=== PATIENT | female | born 1960 | race African-American/Black ===

== ENCOUNTER 2018-03-23 10:01 | Emergency (ER) | payer OTHER ==
[2018-03-23 10:14] VITALS: TEMP 97.4; BMI 34.7
[2018-03-23 10:42] LABS: URINE APPEARANCE CLEAR; URINE BILIRUBIN NEGATIVE (<2.0 mg/dL); URINE COLOR LTYELLOW; URINE GLUCOSE (UA) NEGATIVE (NEGATIVE); URINE KETONE NEGATIVE (NEGATIVE); URINE LEUK ESTERASE NEGATIVE (NEGATIVE); URINE NITRITE NEGATIVE (NEGATIVE); URINE PROTEIN NEGATIVE (NEGATIVE); URINE UROBILINOGEN NEGATIVE mg/dL (0.2-1.0)
--- NOTE | 2018-03-23 11:00 | PDOC ---
History of Present Illness - General Chief Complaint: Pain, Acute Stated Complaint: BACK PAIN,URINARY PROBLEM Time Seen by Provider: 03/23/18 10:26 - History of Present Illness Initial Comments: 03/23/18 10:46 57 year old with history of asthma, HTN, DM, hysterectomy + R ovarian removal ( 2014) who presents with 1 month of diarrhea, nausea, loss of appetite and sharp , intermittent, "swollen-like" L suprapubic abdominal pain. The L suprapubic pain is now constant for 2 days and is radiating to the L mid-back. She denies any fevers, abdominal pain, dysuria, hematuria, chest pain, shortness of breath. No recent travel, no prior history of kidney stones. No prior history of hernias. Denies recent overexertion or heavy lifting. She has no other complaints at bedside. No nausea at bedside. Med list includes: ASA, lasix and simvastatin, patient denies taking these medications. PMHX: as in HPI PSHX: as in HPI Meds: see below Allergies: NKDA Tob:occasional Etoh: occasional Rec drugs: none PCP: Janet Past History - Past Medical History Allergies/Adverse Reactions: Allergies Allergy/AdvReac Type Severity Reaction Status Date / Time No Known Drug Allergies Allergy Verified 03/23/18 10:09 Home Medications: Ambulatory Orders Acetaminophen [Tylenol .Regular Strength -] 650 mg PO Q4H PRN #0 tablet Aspirin [ASA -] 81 mg PO DAILY #0 tab.chew 03/20/13 Chlorthalidone [Hygroton -] 25 mg PO DAILY #0 tablet 03/20/13 Ferrous Sulfate [Feosol] 325 mg PO DAILY #0 ud 03/20/13 Furosemide [Lasix -] 40 mg PO DAILY #0 tablet 03/20/13 Glimepiride 4 mg PO DAILY #0 tablet 03/20/13 Losartan Potassium 100 mg PO DAILY #0 tablet 03/20/13 Oxycodone HCl/Acetaminophen [Percocet 5-325 mg Tablet] 1 combo PO Q4H PRN #0 tablet 03/20/13 Simvastatin [Zocor -] 40 mg PO HS #0 tablet 03/20/13 Anemia: Yes Asthma: Yes Cancer: No Cardiac Disorders: No COPD: No CHF: No Diabetes: Yes GI Disorders: No Disorders: No HTN: Yes Hypercholesterolemia: Yes Liver Disease: No Thyroid Disease: No - Surgical History Abdominal Surgery: No Appendectomy: No Cardiac Surgery: No Cholecystectomy: No Lung Surgery: No Neurologic Surgery: No Orthopedic Surgery: No - Suicide/Smoking/Psychosocial Hx Smoking Status: No Smoking History: Former smoker Have you smoked in the past 12 months: Yes Number of Cigarettes Smoked Daily: 0 If you are a former smoker, when did you quit?: 10YRS AGO. Information on smoking cessation initiated: No Hx Alcohol Use: No Drug/Substance Use Hx: No Substance Use Type: None Hx Substance Use Treatment: No *Physical Exam - Vital Signs Last Vital Signs Temp Pulse Resp BP Pulse Ox 97.4 F L 89 20 157/91 98 03/23/18 10:09 03/23/18 10:09 03/23/18 10:09 03/23/18 10:09 03/23/18 10:09 - Physical Exam Comments: 03/23/18 11:05 GENERAL: Awake, alert, and fully oriented, in no acute distress HEAD: No signs of trauma, normocephalic, atraumatic EYES: EOMI, sclera anicteric, conjunctiva clear ENT: oropharynx clear without exudates. Moist mucosa NECK: Normal ROM, supple LUNGS: No distress, speaks full sentences, clear to auscultation bilaterally HEART: Regular rate and rhythm, normal S1 and S2, no murmurs, rubs or gallops, peripheral pulses normal and equal bilaterally. ABDOMEN: Soft, L suprapubic point tenderness to palpation, normoactive bowel sounds. No guarding, no rebound. No masses BACK: L mid thoracic paraspinal tenderness to palpation, No CVA tenderness EXTREMITIES : Normal inspection, Normal range of motion, no edema. No clubbing or cyanosis. NEUROLOGICAL: Cranial nerves II through XII grossly intact. Normal speech, no focal sensorimotor deficits SKIN: Warm, Dry, normal turgor, no rashes or lesions noted ED Treatment Course - LABORATORY CBC & Chemistry Diagram: 03/23/18 12:25 03/23/18 12:25 Medical Decision Making - Medical Decision Making 03/23/18 11:03 57 year old with history of asthma, HTN, DM, hysterectomy + R ovarian removal ( 2014) who presents with 1 month of diarrhea, nausea, loss of appetite and sharp , intermittent, "swollen-like" L suprapubic abdominal pain. The L suprapubic pain is now constant for 2 days and is radiating to the L mid-back. She denies any fevers, abdominal pain, dysuria, hematuria, chest pain, shortness of breath. No recent travel, no prior history of kidney stones. No prior history of hernias. Denies recent overexertion or heavy lifting. She has no other complaints at bedside. DDX including but not limited to: hernia vs nephrolithiasis vs gastroenteritis vs musculoskeletal vs UTI vs ovarian cyst W/U: - ua, ucx - cbc, cmp, lipase ED Course: No acute distress. Patient sitting comfortably. 03/23/18 15:15 CT: sclerotic area on R iliac bone, no other acute findings *DC/Admit/Observation/Transfer Diagnosis at time of Disposition: Abdominal pain Diagnosis at time of Disposition: (Ruled Out): Nausea & vomiting - Discharge Dispostion Disposition: HOME Condition at time of disposition: Stable - Referrals Referrals: Jagruti Gonzales MD [Primary Care Provider] - Reji Hills DO [Staff Physician] - - Patient Instructions Printed Discharge Instructions: DI for Abdominal Pain-Adult Additional Instructions: You were seen in the ED for complaints of abdominal pain. In the ED you were evaluated with labwork and imaging. Your results were unremarkable. There does not appear to be an acute need for immediate hospitalization. You are advised to follow up with your Primary Care Physician within 1 week. You were given a referral to Gastroenterology and are advised to follow up within 1 week. Return to the ED immediately if you experience worsening abdominal pain, blood in the urine or stool, pain with urination, pain radiating to the back, nausea, vomiting or fever. - Post Discharge Activity
[2018-03-23] MEDS ORDERED: ONDANSETRON 4 MG/2 ML VIAL IVPUSH ONE (12:26)
[2018-03-23] MEDS ORDERED: ACETAMINOPHEN 1000 MG/100 ML VIAL (NON FORMULARY) IVPB ONE (12:26)
[2018-03-23] MEDS ORDERED: ONDANSETRON 4 MG/2 ML VIAL ONE (12:28)
[2018-03-23] MEDS ORDERED: ACETAMINOPHEN INJECTION 100 ML IVPB ONE (12:28)
[2018-03-23] MEDS ORDERED: SODIUM CHLORIDE 1,000 ML IV SCH (12:30)
[2018-03-23 12:35] LABS: BASO % 1.6 % (0-2.0); EOS % 3.9 % (0-4.5); HEMATOCRIT 43.3 % (32.4-45.2); HEMOGLOBIN 13.8 GM/dL (10.7-15.3); LYMPH % 39.2 % (8-40); MCH 28.9 pg (25.7-33.7); MCHC 31.9 g/dl (32.0-36.0); MEAN CELL VOLUME 90.6 fl (80-96); MEAN PLT VOLUME 9.2 fl (7.5-11.1); MONO % 6.8 % (3.8-10.2); NEUT % 48.5 % (42.8-82.8); PLATELET COUNT 252 K/MM3 (134-434); RBC 4.78 M/mm3 (3.60-5.2); RDW 13.3 % (11.6-15.6)
[2018-03-23 12:55] LABS: INR 0.91 (0.83-1.09); PROTHROMBIN TIME (PATIENT) 10.7 SEC (9.7-13.0)
[2018-03-23 13:04] LABS: ALBUMIN 4.2 g/dl (3.4-5.0); ALK PHOS 112 U/L (45-117); ANION GAP 6 MMOL/L (8-16); BILIRUBIN,TOTAL 0.3 mg/dL (0.2-1); BLOOD UREA NITROGEN 18 mg/dL (7-18); CHLORIDE 108 mmol/L (98-107); CO2 25 mmol/L (21-32); CREATININE 0.9 mg/dL (0.55-1.3); GLUCOSE,RANDOM 103 mg/dL (74-106); LIPASE 986 U/L (73-393); POTASSIUM 4.9 mmol/L (3.5-5.1); SGOT/AST 12 U/L (15-37); SGPT/ALT 21 U/L (13-61); SODIUM 139 mmol/L (136-145); TOT PROT 8.1 g/dl (6.4-8.2)
--- NOTE | 2018-03-23 13:07 | PDOC ---
Attending Attestation - Resident Resident Name: Belen Melvin - ED Attending Attestation I have performed the following: I have examined & evaluated the patient, The case was reviewed & discussed with the resident, I agree w/resident's findings & plan - HPI HPI: 03/23/18 13:03 57-year-old female with history of hypertension, diabetes, hysterectomy and right salpingo-oophorectomy presents with left lower quadrant pain for 2 days. Patient has months of intermittent left lower quadrant/left pelvic pain, mild and never evaluated. Over the last 2 days, has had constant left lower quadrant pain radiating to her back, slight nonbloody diarrhea but no associated urinary complaints. No fevers or chills, presents for evaluation. Had reportedly normal colonoscopy last year, - Physicial Exam PE: 03/23/18 13:05 Afebrile Well-appearing, seated comfortably in chair Heart is regular, lungs are clear Abdomen is soft/nondistended. Tender with some guarding in the left lower quadrant/left mid abdomen, no CVA tenderness. No rash or palpable hernia. - Medical Decision Making 03/23/18 13:06 57-year-old female presents with acute on chronic left lower quadrant/left low back pain, progressive over 2 days. Exam seems most consistent with GI etiology given the diarrhea, question colitis versus diverticulitis. Rule out UTI, seems less likely consistent with [employer]RE[employer] HELPER etiology. Labs, urinalysis IV fluids, pain control CT of the abdomen and pelvis Reassess
[2018-03-23 16:23] VITALS: BP 134/74; PULSE 75
== END 2018-03-23 16:23 | disposition home or self-care (01) ==
LOC: JER 10:01
PROC: 3E033GC Introduction of Other Therapeutic Substance into Peripheral Vein, Percutaneous Approach (ICD-10-PCS; principal; 2018-03-23)
PROC: 3E033NZ Introduction of Analgesics, Hypnotics, Sedatives into Peripheral Vein, Percutaneous Approach (ICD-10-PCS; 2018-03-23)
DX: R10.84 Generalized abdominal pain (principal); I10 Essential (primary) hypertension; E78.00 Pure hypercholesterolemia, unspecified; E11.9 Type 2 diabetes mellitus without complications; Z79.84 Long term (current) use of oral hypoglycemic drugs
CPT/HCPCS: 36415; 74177-TC; 80053; 81003; 82550; 83605; 83690; 84484; 85025; 85610; 87086; 96374; 96375; 99283-25; J0131; J7030

== ENCOUNTER 2018-10-04 02:56 | Inpatient (IN) | payer OTHER ==
--- NOTE | 2018-10-04 03:01 | PDOC ---
History of Present Illness - General Stated Complaint: BLOOD SUGAR PROBLEM Time Seen by Provider: 10/04/18 02:58 History Source: Patient - History of Present Illness Initial Comments: 10/04/18 02:59 confusion that began when she woke up. She states that she called the EMS because she felt unwell. Timing/Duration: 1/2 hour Severity: moderate Past History - Travel Traveled outside of the country in the last 30 days: No Close contact w/someone who was outside of country & ill: No - Past Medical History Allergies/Adverse Reactions: Allergies Allergy/AdvReac Type Severity Reaction Status Date / Time No Known Drug Allergies Allergy Verified 10/04/18 03:02 Home Medications: Ambulatory Orders Acetaminophen [Tylenol .Regular Strength -] 650 mg PO Q4H PRN #0 tablet Aspirin [ASA -] 81 mg PO DAILY #0 tab.chew 03/20/13 Chlorthalidone [Hygroton -] 25 mg PO DAILY #0 tablet 03/20/13 Ferrous Sulfate [Feosol] 325 mg PO DAILY #0 ud 03/20/13 Furosemide [Lasix -] 40 mg PO DAILY #0 tablet 03/20/13 Glimepiride 4 mg PO DAILY #0 tablet 03/20/13 Losartan Potassium 100 mg PO DAILY #0 tablet 03/20/13 Oxycodone HCl/Acetaminophen [Percocet 5-325 mg Tablet] 1 combo PO Q4H PRN #0 tablet 03/20/13 Simvastatin [Zocor -] 40 mg PO HS #0 tablet 03/20/13 Chlorthalidone 25 mg PO DAILY 10/04/18 Metformin HCl [Glucophage] 500 mg PO BID 10/04/18 Methimazole 5 mg PO DAILY 10/04/18 Sitagliptin Phosphate [Januvia] 100 mg PO DAILY 10/04/18 Anemia: Yes Asthma: Yes Cancer: No Cardiac Disorders: No COPD: No CHF: No Diabetes: Yes GI Disorders: No Disorders: No HTN: Yes Hypercholesterolemia: Yes Liver Disease: No Thyroid Disease: No - Surgical History Abdominal Surgery: No Appendectomy: No Cardiac Surgery: No Cholecystectomy: No Lung Surgery: No Neurologic Surgery: No Orthopedic Surgery: No - Suicide/Smoking/Psychosocial Hx Smoking Status: No Smoking History: Former smoker Have you smoked in the past 12 months: Yes Number of Cigarettes Smoked Daily: 0 If you are a former smoker, when did you quit?: 10YRS AGO. Hx Alcohol Use: No Drug/Substance Use Hx: No Substance Use Type: None Hx Substance Use Treatment: No Review of Systems - Review of Systems Constitutional: No: Symptoms Reported, See HPI, Chills, Diaphoresis, Fever, Loss of Appetite, Malaise, Night Sweats, Weakness, Weight Stable, Unintentional Wgt. Loss, Unexplained wgt Loss, Other HEENTM: No: Symptoms Reported, See HPI, Eye Pain, Blurred Vision, Tearing, Recent change in vision, Double Vision, Cataracts, Ear Pain, Ocular Prothesis, Ear Discharge, Nose Pain, Nose Congestion, Tinnitus, Nose Bleeding, Hearing Loss , Throat Pain, Throat Swelling, Mouth Pain, Dental Problems, Difficulty Swallowing, Mouth Swelling, Other Respiratory: No: Symptoms reported, See HPI, Cough, Orthopnea, Shortness of Breath, SOB with Exertion, SOB at Rest, Stridor, Wheezing, Productive cough, Hemoptysis, Other Cardiac (ROS): No: Symptoms Reported, See HPI, Chest Pain, Edema, Irregular Heart Rate, Lightheadedness, Palpitations, Syncope, Chest Tightness, Other ABD/GI: No: Symptoms Reported, See HPI, Abdominal Distended, Abd. Pain w/ defecation, Blood Streaked Bowels, Constipated, Diarrhea, Difficulty Swallowing , Nausea, Poor Appetite, Poor Fluid Intake, Rectal Bleeding, Vomiting, Indigestion, Abdominal cramping, Tarry Stools, Other : No: Symptoms Reported, See HPI, Burning, Dysuria, Discharge, Frequency, Flank Pain, Hematuria, Incontinence, Pain, Urgency, Testicular Mass, Testicular Swelling, Lesions, Testicular Pain, Other Neurological: Yes: Weakness. No: Symptoms reported, See HPI, Headache, Numbness , Paresthesia, Pre-Existing Deficit, Seizure, Tingling, Tremors, Unsteady Gait, Ataxia, Dizziness, Other *Physical Exam - Physical Exam General Appearance: Yes: Nourished, Appropriately Dressed. No: Apparent Distress HEENT: positive: EOMI, MARIELLA, Normal ENT Inspection, Normal Voice, Symmetrical, TMs Normal, Pharynx Normal Neck: positive: Trachea midline, Normal Thyroid, Supple Respiratory/Chest: positive: Lungs Clear, Normal Breath Sounds. negative: Chest Tender Cardiovascular: positive: Regular Rhythm, Regular Rate, S1, S2 Gastrointestinal/Abdominal: positive: Normal Bowel Sounds, Flat, Soft. negative : Tender Musculoskeletal: positive: Normal Inspection, CVA Tenderness Extremity: positive: Normal Capillary Refill, Normal Inspection, Normal Range of Motion, Tender, Pelvis Stable Integumentary: positive: Normal Color, Dry, Warm Neurologic: positive: operational intelligence officer II-XII NML intact, Fully Oriented, Alert, Normal Mood/ Affect, Normal Response, Motor Strength 10/03 ED Treatment Course - LABORATORY CBC & Chemistry Diagram: 10/04/18 03:23 10/04/18 03:23 Medical Decision Making - Medical Decision Making 10/04/18 03:00 Pt is a diabetic. States that usually her glc doesnt fall too low. Tonight when EMS arrived her blood sugar was 66. She reeived glc and the blood sugar went up to 80s. States that this earlier yesterday AM her blood sugar was in the 50s and she called EMS, and after she ate something the blood sugar had gone up, so she declined coming to the ER at that time. 10/04/18 04:03 Pt has a slightly elevated WBC count ay 12.7 10/04/18 04:17 CXR is normal clear lung alexandre. head CT pending; appears normal to me. Pt will be admitted for hypoglycemia and dizziness and falls. *DC/Admit/Observation/Transfer Diagnosis at time of Disposition: Hypoglycemia, Dizziness, Near syncope, Syncope - Discharge Dispostion Condition at time of disposition: Guarded Decision to Admit order: Yes - Referrals - Patient Instructions - Post Discharge Activity
[2018-10-04] MEDS ORDERED: DEXTROSE 50%-WATER - 25 GM/50 ML VIAL IVPUSH ONE (03:09)
[2018-10-04] MEDS ORDERED: DEXTROSE 50%-WATER 25 GM/50 ML DISP.SYRIN ONE ×2 (03:15→09:01)
[2018-10-04 03:44] LABS: BASO % 0.7 % (0-2.0); EOS % 0.5 % (0-4.5); HEMATOCRIT 39.2 % (32.4-45.2); HEMOGLOBIN 12.9 GM/dL (10.7-15.3); LYMPH % 21.6 % (8-40); MCH 29.5 pg (25.7-33.7); MCHC 32.9 g/dl (32.0-36.0); MEAN CELL VOLUME 89.6 fl (80-96); MEAN PLT VOLUME 9.5 fl (7.5-11.1); MONO % 5.7 % (3.8-10.2); NEUT % 71.5 % (42.8-82.8); PLATELET COUNT 310 K/MM3 (134-434); RBC 4.37 M/mm3 (3.60-5.2); WHITE BLOOD COUNT 12.2 K/mm3 (4.0-10.0)
[2018-10-04 04:14] LABS: ALBUMIN 3.5 g/dl (3.4-5.0); ALK PHOS 83 U/L (45-117); ANION GAP 8 MMOL/L (8-16); BILIRUBIN,TOTAL 0.3 mg/dL (0.2-1); BLOOD UREA NITROGEN 22 mg/dL (7-18); CALCIUM 9.2 mg/dL (8.5-10.1); CHLORIDE 104 mmol/L (98-107); CO2 24 mmol/L (21-32); CREATININE 1.2 mg/dL (0.55-1.3); GLUCOSE,RANDOM 225 mg/dL (74-106); POTASSIUM 3.9 mmol/L (3.5-5.1); SGOT/AST 7 U/L (15-37); SGPT/ALT 15 U/L (13-61); SODIUM 136 mmol/L (136-145); TOT PROT 7.1 g/dl (6.4-8.2)
--- NOTE | 2018-10-04 05:27 | PN ---
Teaching Attending Note Name of Resident: Kenji Rosas ATTENDING PHYSICIAN STATEMENT I saw and evaluated the patient. I reviewed the resident's note and discussed the case with the resident. I agree with the resident's findings and plan as documented. SUBJECTIVE: Seen and examined; please refer to resident note for further historical information. Briefly, patient presents for 3 days dizziness/numbness. Stated on thursday when she was having issues getting out of bed. The following day she called her friend who agreed she looked off; she was found to be hypoglycemic and was given juice and peanut butter and it improved to the 300s so she came to the ER. Later, the sx returned so she came to the ER. Numbness is ' everywhere.' Glucose on arrival was 53; given d50. CT head was negative. Afebrile and hemodynamically stable. She does use cocaine and marijuana; last use few days ago. Says she drinks one bottle of hard liquor per week. 10 sys ROS done and negative aside from HPI PMH (DM, asthma, HLD), PSH, FH, SH reviewed Home Medications Medication Instructions Recorded Acetaminophen [Tylenol .Regular 650 mg PO Q4H PRN #0 tablet 03/20/13 Strength -] Aspirin [ASA -] 81 mg PO DAILY #0 tab.chew 03/20/13 Chlorthalidone [Hygroton -] 25 mg PO DAILY #0 tablet 03/20/13 Ferrous Sulfate [Feosol] 325 mg PO DAILY #0 ud 03/20/13 Furosemide [Lasix -] 40 mg PO DAILY #0 tablet 03/20/13 Glimepiride 4 mg PO DAILY #0 tablet 03/20/13 Losartan Potassium 100 mg PO DAILY #0 tablet 03/20/13 Oxycodone HCl/Acetaminophen 1 combo PO Q4H PRN #0 tablet 03/20/13 [Percocet 5-325 mg Tablet] Simvastatin [Zocor -] 40 mg PO HS #0 tablet 03/20/13 Chlorthalidone 25 mg PO DAILY 10/04/18 Metformin HCl [Glucophage] 500 mg PO BID 10/04/18 Methimazole 5 mg PO DAILY 10/04/18 Sitagliptin Phosphate [Januvia] 100 mg PO DAILY 10/04/18 OBJECTIVE: VS, labs, imaging reviewed NAD, AAO, resting comfortably in bed NC AT EOMI PERRLA RRR s1/2 no mgr Lungs CTAB, w/ sym exp NT ND +BS CN2-12 wnl, no fnd, NIHSS 0, no issues with motor/sensory CT head prelim negative ASSESSMENT AND PLAN: Patient presents for likely hypoglycemia 1) Dizziness, full body numbness-likely hypoglycemia-resolved -Likely 2/2 hypoglycemia in the setting of metformin, januvia, glimiperide. Would stop BALDWIN prior to DC -This started on thursday around the time she smoked crack cocaine and she did not eat after; given her current use of mmj, cocaine, and etoh would also job counselor her to stop using. There could be some contributory factor. -Check A1c -Likely safe to DC if fsg in 2 hours normal -Negative head CT 2) Polysubstance abuse -Counseled to stop 3) EtOH abuse -CIWA with librium when inpatient 4) DM -Per above; recommend stopping BALDWIN prior to DC. Confirm current medications with pharmacy. 5) HTN 6) HLD 7) Methimazole use
[2018-10-04] MEDS ORDERED: HEPARIN NA (PORCINE) 5,000 UNITS/ML 1ML VIAL ONE (06:02)
[2018-10-04] MEDS: INSULIN SLIDING SCALE (NOVOLOG) 1 VIAL SQ SCH ×2 (06:08→11:14)
[2018-10-04] MEDS: HEPARIN NA (PORCINE) 5,000 UNITS/ML 1ML VIAL SQ SCH ×3 (06:08→21:22)
[2018-10-04] MEDS ORDERED: chlordiazePOXIDE HCL 10 MG CAPSULE PO PRN (06:30)
[2018-10-04] MEDS ORDERED: chlordiazePOXIDE HCL 25 MG CAPSULE ONE (06:38)
[2018-10-04 06:42] LABS: BASO % 0.3 % (0-2.0); EOS % 0.9 % (0-4.5); HEMATOCRIT 37.7 % (32.4-45.2); HEMOGLOBIN 12.7 GM/dL (10.7-15.3); LYMPH % 32.1 % (8-40); MCH 29.9 pg (25.7-33.7); MCHC 33.6 g/dl (32.0-36.0); MEAN CELL VOLUME 88.9 fl (80-96); MEAN PLT VOLUME 8.9 fl (7.5-11.1); NEUT % 61.7 % (42.8-82.8); PLATELET COUNT 310 K/MM3 (134-434); RBC 4.24 M/mm3 (3.60-5.2); WHITE BLOOD COUNT 10.4 K/mm3 (4.0-10.0)
[2018-10-04] MEDS: chlordiazePOXIDE HCL 25 MG CAPSULE PO SCH ×3 (06:42→21:22)
[2018-10-04 07:07] LABS: INR 0.89 (0.83-1.09); PROTHROMBIN TIME (PATIENT) 10.5 SEC (9.7-13.0)
[2018-10-04 07:09] LABS: ACTIVATED PTT 21.4 SECONDS (25.2-36.5)
[2018-10-04 07:16] LABS: ALBUMIN 3.7 g/dl (3.4-5.0); ALK PHOS 85 U/L (45-117); ANION GAP 8 MMOL/L (8-16); BILIRUBIN,TOTAL 0.3 mg/dL (0.2-1); BLOOD UREA NITROGEN 21 mg/dL (7-18); CALCIUM 9.3 mg/dL (8.5-10.1); CHLORIDE 104 mmol/L (98-107); CO2 27 mmol/L (21-32); CREATININE 1.2 mg/dL (0.55-1.3); GLUCOSE,RANDOM 50 mg/dL (74-106); MAGNESIUM 1.3 mg/dL (1.8-2.4); PHOSPHOROUS 3.1 mg/dL (2.5-4.9); POTASSIUM 4.1 mmol/L (3.5-5.1); SGOT/AST 9 U/L (15-37); SGPT/ALT 16 U/L (13-61); SODIUM 140 mmol/L (136-145); TOT PROT 7.2 g/dl (6.4-8.2)
--- NOTE | 2018-10-04 07:17 | HP ---
CHIEF COMPLAINT: Whole body numbness/weakness PCP: Dr Naik HISTORY OF PRESENT ILLNESS: Pt is a 58 y/o F with a significant past medical history of DM, Asthma, and HLD who presented to [facility] due to weakness and numbness. Pt endorses that Thursday, she began to experience generalized numbness/weakness in all of her body. Pt states she tried to walk to bathroom but could not get out of bed. Pt did not seek immediate help. The following day, pt was in her home and her friend began to notice that she had slurring of speech and that her " eyes did not look right.". 911 was called and pt's BGM was found to be in low 60's. Pt was given peanut butter and juice and repeat BGM was in 300s; pt was informed by EMS to go to hospital if symptoms progress. Later that evening, pt began to experience her previous symptoms of numbness/weakness and subsequently came to ED. Pt does endorse that she sometimes uses cocaine and does not eat during this time. Pt takes oral hypoglycemic medications though cannot recall names; endorses taking DM medications before cocaine use which may be culprit to possible symptomatic hypoglycemia as she does not eat when using cocaine. Denies nausea or vomiting. PMH as above Social Hx- Drinks 1 bottle Bicardi per week. 2/3 cigarets per day. Cocaine socially. FH- Mom DM. Father Healthy. 1 sibling with DM. SurgHx- Hysterectomy ER course was notable for: (1) BGM upon arrival to ED 66 (2) Given D5 Amp in ED Family History: Allergies No Known Drug Allergies Allergy (Verified 10/04/18 03:02) HOME MEDICATIONS: Home Medications Medication Instructions Recorded Acetaminophen [Tylenol .Regular 650 mg PO Q4H PRN #0 tablet 03/20/13 Strength -] Aspirin [ASA -] 81 mg PO DAILY #0 tab.chew 03/20/13 Chlorthalidone [Hygroton -] 25 mg PO DAILY #0 tablet 03/20/13 Ferrous Sulfate [Feosol] 325 mg PO DAILY #0 ud 03/20/13 Furosemide [Lasix -] 40 mg PO DAILY #0 tablet 03/20/13 Glimepiride 4 mg PO DAILY #0 tablet 03/20/13 Losartan Potassium 100 mg PO DAILY #0 tablet 03/20/13 Oxycodone HCl/Acetaminophen 1 combo PO Q4H PRN #0 tablet 03/20/13 [Percocet 5-325 mg Tablet] Simvastatin [Zocor -] 40 mg PO HS #0 tablet 03/20/13 Chlorthalidone 25 mg PO DAILY 10/04/18 Metformin HCl [Glucophage] 500 mg PO BID 10/04/18 Methimazole 5 mg PO DAILY 10/04/18 Sitagliptin Phosphate [Januvia] 100 mg PO DAILY 10/04/18 REVIEW OF SYSTEMS CONSTITUTIONAL: PRESENT generalized weakness HEENT: Absent: rhinorrhea, nasal congestion, throat pain, throat swelling, difficulty swallowing, mouth swelling, ear pain, eye pain, visual changes CARDIOVASCULAR: Absent: chest pain, syncope, palpitations, irregular heart rate, lightheadedness , peripheral edema RESPIRATORY: Absent: cough, shortness of breath, dyspnea with exertion, orthopnea, wheezing, stridor, hemoptysis GASTROINTESTINAL: Absent: abdominal pain, abdominal distension, nausea, vomiting, diarrhea, constipation, melena, hematochezia GENITOURINARY: Absent: dysuria, frequency, urgency, hesitancy, hematuria, flank pain, genital pain MUSCULOSKELETAL: Absent: myalgia, arthralgia, joint swelling, back pain, neck pain SKIN: Absent: rash, itching, pallor HEMATOLOGIC/IMMUNOLOGIC: Absent: easy bleeding, easy bruising, lymphadenopathy, frequent infections ENDOCRINE: Absent: unexplained weight gain, unexplained weight loss, heat intolerance, cold intolerance NEUROLOGIC: PRESENT: focal weakness or paresthesias, dizziness, unsteady gait PSYCHIATRIC: Absent: anxiety, depression, suicidal or homicidal ideation, hallucinations. PHYSICAL EXAMINATION Vital Signs - 24 hr 10/04/18 10/04/18 02:57 04:39 Temperature 98.7 F Pulse Rate 108 H Pulse Rate [ 98 H Apical] Respiratory 18 18 Rate Blood Pressure 145/81 Blood Pressure 140/69 [Left] O2 Sat by Pulse 99 99 Oximetry (%) GENERAL: NAD HEAD: Normal with no signs of trauma. EYES: EOMI Sclera Clear EARS, NOSE, THROAT: MMM NECK: Normal range of motion, supple without lymphadenopathy, JVD, or masses. LUNGS: CTAB HEART: RRR ABDOMEN: Soft,NDNT. LOWER EXTREMITIES: No onychomycosis or ulcers in feet appreciated NEUROLOGICAL: Cranial nerves II-XII intact. Normal speech. No motor or sensory weakness appreciated. Strength 5/5 throughout. SILT SKIN: Warm, dry, normal turgor, no rashes or lesions noted, normal capillary refill. Laboratory Results - last 24 hr 10/04/18 10/04/18 10/04/18 03:07 03:23 03:23 WBC 12.2 H RBC 4.37 Hgb 12.9 Hct 39.2 MCV 89.6 MCH 29.5 MCHC 32.9 RDW 13.0 Plt Count 310 D MPV 9.5 Absolute Neuts (auto) 8.7 H Neutrophils % 71.5 D Lymphocytes % 21.6 D Monocytes % 5.7 Eosinophils % 0.5 D Basophils % 0.7 Nucleated RBC % 0 PT with INR INR PTT (Actin FS) Sodium 136 Potassium 3.9 Chloride 104 Carbon Dioxide 24 Anion Gap 8 BUN 22 H Creatinine 1.2 Creat Clearance w eGFR 46.14 POC Glucometer 54 Random Glucose 225 H Calcium 9.2 Phosphorus Magnesium Total Bilirubin 0.3 AST 7 L ALT 15 Alkaline Phosphatase 83 Creatine Kinase Troponin I Total Protein 7.1 Albumin 3.5 Triglycerides Cholesterol Total LDL Cholesterol HDL Cholesterol TSH Resin T3 Uptake 10/04/18 10/04/18 10/04/18 03:23 03:23 06:05 WBC RBC Hgb Hct MCV MCH MCHC RDW Plt Count MPV Absolute Neuts (auto) Neutrophils % Lymphocytes % Monocytes % Eosinophils % Basophils % Nucleated RBC % PT with INR INR PTT (Actin FS) Sodium Potassium Chloride Carbon Dioxide Anion Gap BUN Creatinine Creat Clearance w eGFR POC Glucometer 71 Random Glucose Calcium Phosphorus Magnesium Total Bilirubin AST ALT Alkaline Phosphatase Creatine Kinase 73 Troponin I < 0.02 Total Protein Albumin Triglycerides Cholesterol Total LDL Cholesterol HDL Cholesterol TSH 1.24 Resin T3 Uptake 33.3 10/04/18 10/04/18 10/04/18 06:30 06:30 06:30 WBC 10.4 H RBC 4.24 Hgb 12.7 Hct 37.7 MCV 88.9 MCH 29.9 MCHC 33.6 RDW 13.0 Plt Count 310 MPV 8.9 Absolute Neuts (auto) 6.4 Neutrophils % 61.7 Lymphocytes % 32.1 D Monocytes % 5.0 Eosinophils % 0.9 Basophils % 0.3 Nucleated RBC % 0 PT with INR 10.50 INR 0.89 PTT (Actin FS) 21.4 L Sodium 140 Potassium 4.1 Chloride 104 Carbon Dioxide 27 Anion Gap 8 BUN 21 H Creatinine 1.2 Creat Clearance w eGFR 46.14 POC Glucometer Random Glucose 50 L Calcium 9.3 Phosphorus 3.1 Magnesium 1.3 L Total Bilirubin 0.3 AST 9 L ALT 16 Alkaline Phosphatase 85 Creatine Kinase Troponin I Total Protein 7.2 Albumin 3.7 Triglycerides Cholesterol Total LDL Cholesterol HDL Cholesterol TSH Resin T3 Uptake 10/04/18 06:30 WBC RBC Hgb Hct MCV MCH MCHC RDW Plt Count MPV Absolute Neuts (auto) Neutrophils % Lymphocytes % Monocytes % Eosinophils % Basophils % Nucleated RBC % PT with INR INR PTT (Actin FS) Sodium Potassium Chloride Carbon Dioxide Anion Gap BUN Creatinine Creat Clearance w eGFR POC Glucometer Random Glucose Calcium Phosphorus Magnesium Total Bilirubin AST ALT Alkaline Phosphatase Creatine Kinase Troponin I Total Protein Albumin Triglycerides 65 Cholesterol 122 Total LDL Cholesterol 59 HDL Cholesterol 60 TSH 1.29 Resin T3 Uptake ASSESSMENT/PLAN: Pt is a 58 y/o F with a significant past medical history of DM, Asthma, and HLD who presented to [facility] due to weakness an numbness. # Dizziness/Full Body numbness 2/2 Hypoglycemia -Pt is on numerous oral hypoglycemic medications. States she is compliant with her medications. Does endorse she took her medications before cocaine use and when not eating. -Check A1c -BGM Q2H. Sliding Scale ACHS. -Negative head CT Confirm current medications with pharmacy. [facility]. # Polysubstance abuse -Counseled to stop -Started on Librium protocol in light of chronic alcohol use -Urine Toxicology #FEN No Standing fluids Monitor Electrolytes Diabetic Diet #DVT ppx: HEPSQTID Dispo: Med-Surg Visit type - Emergency Visit Emergency Visit: Yes ED Registration Date: 10/04/18 Care time: The patient presented to the Emergency Department on the above date and was hospitalized for further evaluation of their emergent condition. - New Patient This patient is new to me today: Yes Date on this admission: 10/04/18 - Critical Care Critical Care patient: No
[2018-10-04] MEDS ORDERED: DEXTROSE 50%-WATER - 25 GM/50 ML VIAL IVPUSH PRN (07:57)
[2018-10-04] MEDS ORDERED: MAGNESIUM 4GM/H20 - 4 GM/100 ML IVPB IVPB ONE (09:00)
[2018-10-04] MEDS: DEXTROSE 50%-WATER - 25 GM/50 ML VIAL IVPUSH ONE ×2 (09:01→10:30)
--- NOTE | 2018-10-04 09:59 | EKG ---
Test Reason : Blood Pressure : / mmHG Vent. Rate : 103 BPM Atrial Rate : 103 BPM P-R Int : 158 ms QRS Dur : 080 ms QT Int : 356 ms P-R-T Axes : 059 -31 047 degrees QTc Int : 466 ms SINUS TACHYCARDIA LEFT AXIS DEVIATION CANNOT RULE OUT INFERIOR INFARCT (CITED ON OR BEFORE 10-MAR-2013) ABNORMAL ECG WHEN COMPARED WITH ECG OF 10-MAR-2013 09:12, NO SIGNIFICANT CHANGE WAS FOUND Confirmed by ANTWAN KWAN, DAGOBERTO ([id number]) on 10/04/2018 9:59:25 AM Referred By: Confirmed By:DAGOBERTO MONCADA MD
[2018-10-04 11:00] VITALS: BMI 32.5
[2018-10-04 11:19] LABS: ANION GAP 8 MMOL/L (8-16); BLOOD UREA NITROGEN 19 mg/dL (7-18); CALCIUM 9.8 mg/dL (8.5-10.1); CHLORIDE 100 mmol/L (98-107); CO2 29 mmol/L (21-32); CREATININE 1.3 mg/dL (0.55-1.3); GLUCOSE,RANDOM 212 mg/dL (74-106); POTASSIUM 3.9 mmol/L (3.5-5.1); SODIUM 137 mmol/L (136-145)
--- NOTE | 2018-10-04 13:51 | PN ---
Teaching Attending Note Name of Resident: Syl Plaza ATTENDING PHYSICIAN STATEMENT I saw and evaluated the patient. I reviewed the resident's note and discussed the case with the resident. I agree with the resident's findings and plan as documented. SUBJECTIVE: Feeling better - denies CP/palps/dyspnea/sweating/nausea/vomiting. OBJECTIVE: Episode of agitation, confusion this AM corresponding with low fingerstick glucose (29). Afebrile, Hemodynamically Stable. Last Vital Signs Temp Pulse Resp BP Pulse Ox 97.6 F 94 H 20 161/92 100 10/04/18 10:43 10/04/18 10:43 10/04/18 10:43 10/04/18 10:43 10/04/18 10:43 HEENT - Atraumatic, Nromocephalic. Heart - S1, S2, RRR Lungs - clear to auscultation Abdomen - Soft, non-tender. Bowel Sounds normal. Extremities - no edema, no calf tenderness. Neuro - AAO x 3. Tone/Power normal all 4 extremities. No tremor. Laboratory Results - last 24 hr 10/04/18 10/04/18 10/04/18 03:07 03:23 03:23 WBC 12.2 H RBC 4.37 Hgb 12.9 Hct 39.2 MCV 89.6 MCH 29.5 MCHC 32.9 RDW 13.0 Plt Count 310 D MPV 9.5 Absolute Neuts (auto) 8.7 H Neutrophils % 71.5 D Lymphocytes % 21.6 D Monocytes % 5.7 Eosinophils % 0.5 D Basophils % 0.7 Nucleated RBC % 0 PT with INR INR PTT (Actin FS) Sodium 136 Potassium 3.9 Chloride 104 Carbon Dioxide 24 Anion Gap 8 BUN 22 H Creatinine 1.2 Creat Clearance w eGFR 46.14 POC Glucometer 54 Random Glucose 225 H Hemoglobin A1c % Calcium 9.2 Phosphorus Magnesium Total Bilirubin 0.3 AST 7 L ALT 15 Alkaline Phosphatase 83 Creatine Kinase Troponin I Total Protein 7.1 Albumin 3.5 Triglycerides Cholesterol Total LDL Cholesterol HDL Cholesterol TSH Resin T3 Uptake 10/04/18 10/04/18 10/04/18 03:23 03:23 05:14 WBC RBC Hgb Hct MCV MCH MCHC RDW Plt Count MPV Absolute Neuts (auto) Neutrophils % Lymphocytes % Monocytes % Eosinophils % Basophils % Nucleated RBC % PT with INR INR PTT (Actin FS) Sodium Potassium Chloride Carbon Dioxide Anion Gap BUN Creatinine Creat Clearance w eGFR POC Glucometer Random Glucose Hemoglobin A1c % 8.0 H Calcium Phosphorus Magnesium Total Bilirubin AST ALT Alkaline Phosphatase Creatine Kinase 73 Troponin I < 0.02 Total Protein Albumin Triglycerides Cholesterol Total LDL Cholesterol HDL Cholesterol TSH 1.24 Resin T3 Uptake 33.3 10/04/18 10/04/18 10/04/18 06:05 06:30 06:30 WBC 10.4 H RBC 4.24 Hgb 12.7 Hct 37.7 MCV 88.9 MCH 29.9 MCHC 33.6 RDW 13.0 Plt Count 310 MPV 8.9 Absolute Neuts (auto) 6.4 Neutrophils % 61.7 Lymphocytes % 32.1 D Monocytes % 5.0 Eosinophils % 0.9 Basophils % 0.3 Nucleated RBC % 0 PT with INR 10.50 INR 0.89 PTT (Actin FS) 21.4 L Sodium Potassium Chloride Carbon Dioxide Anion Gap BUN Creatinine Creat Clearance w eGFR POC Glucometer 71 Random Glucose Hemoglobin A1c % Calcium Phosphorus Magnesium Total Bilirubin AST ALT Alkaline Phosphatase Creatine Kinase Troponin I Total Protein Albumin Triglycerides Cholesterol Total LDL Cholesterol HDL Cholesterol TSH Resin T3 Uptake 10/04/18 10/04/18 10/04/18 06:30 06:30 09:00 WBC RBC Hgb Hct MCV MCH MCHC RDW Plt Count MPV Absolute Neuts (auto) Neutrophils % Lymphocytes % Monocytes % Eosinophils % Basophils % Nucleated RBC % PT with INR INR PTT (Actin FS) Sodium 140 Potassium 4.1 Chloride 104 Carbon Dioxide 27 Anion Gap 8 BUN 21 H Creatinine 1.2 Creat Clearance w eGFR 46.14 POC Glucometer 28 Random Glucose 50 L Hemoglobin A1c % Calcium 9.3 Phosphorus 3.1 Magnesium 1.3 L Total Bilirubin 0.3 AST 9 L ALT 16 Alkaline Phosphatase 85 Creatine Kinase Troponin I Total Protein 7.2 Albumin 3.7 Triglycerides 65 Cholesterol 122 Total LDL Cholesterol 59 HDL Cholesterol 60 TSH 1.29 Resin T3 Uptake 10/04/18 10/04/18 10/04/18 09:17 10:29 11:13 WBC RBC Hgb Hct MCV MCH MCHC RDW Plt Count MPV Absolute Neuts (auto) Neutrophils % Lymphocytes % Monocytes % Eosinophils % Basophils % Nucleated RBC % PT with INR INR PTT (Actin FS) Sodium 137 Potassium 3.9 Chloride 100 Carbon Dioxide 29 Anion Gap 8 BUN 19 H Creatinine 1.3 Creat Clearance w eGFR 42.07 POC Glucometer 296 210 Random Glucose 212 H Hemoglobin A1c % Calcium 9.8 Phosphorus Magnesium Total Bilirubin AST ALT Alkaline Phosphatase Creatine Kinase Troponin I Total Protein Albumin Triglycerides Cholesterol Total LDL Cholesterol HDL Cholesterol TSH Resin T3 Uptake Current Medications Generic Name Dose Route Start Last Admin Trade Name Freq PRN Reason Stop Dose Admin Chlordiazepoxide HCl 10 mg 10/06/18 05:00 Librium - PO 10/07/18 05:00 Q12H PRN Signs/symptoms of Withdrawal Chlordiazepoxide HCl 10 mg 10/04/18 06:30 Librium - PO 10/06/18 05:00 Q8H PRN Signs/symptoms of Withdrawal Chlordiazepoxide HCl 25 mg 10/04/18 05:00 10/04/18 13:09 Librium - PO 10/04/18 21:01 25 mg Q8H NIKOLAI Administration Chlordiazepoxide HCl 15 mg 10/05/18 05:00 Librium - PO 10/05/18 21:01 Q8H NIKOLAI Chlordiazepoxide HCl 10 mg 10/06/18 05:00 Librium - PO 10/07/18 05:01 Q8H NIKOLAI Dextrose 25 gm 10/04/18 07:57 D50w (Vial) - IVPUSH PRN PRN HYPOGLYCEMIA Heparin Sodium (Porcine) 5,000 unit 10/04/18 06:00 10/04/18 13:16 Heparin - SQ 5,000 unit TID NIKOLAI Administration Insulin Aspart 1 vial 10/04/18 07:00 10/04/18 11:14 Novolog Vial Sliding Scale - SQ 4 units ACHS NIKOLAI Administration Protocol ASSESSMENT AND PLAN: 58 year old female with history of Polysubstance Abuse (Alcohol, cocaine, tobacco), DM2, Asthma, and HLD who presented with generalized weakness and lethargy. EMS found her fingerstick glucose to be in the 60s. 1. Acute Metabolic Encephalopathy secondary to Hypoglycemia, refractory Episode at time of admission and again this morning, responded to [address] Head - negative Hx of uncontrolled DM 2 - A1c 8.0 - Oral anti-hyperglycemics held. D5-1/2NS ongoing. 2. Hx of Polysubstance Abuse (Alcohol, Cocaine, Tobacco) Unclear whether episode of agitation and confusion this am is alcohol withdrawal related. On Librium protocol for alcohol withdrawal. 3. Asthma - stable. No evidence of acute exacerbation. 4. Hypomagnesemia - repleted. DVT Px - Heparin SQ
[2018-10-04] MEDS: DEXTROSE 5%-0.45% SALINE 1,000 ML IV SCH (13:56)
[2018-10-04 14:03] LABS: METHADONE, UR NEGATIVE ng/ml (CUTOFF=300); OPIATES, URI NEGATIVE ng/ml (CUTOFF=300); PHENCYCLIDINE,URINE NEGATIVE ng/ml (CUTOFF=25); URINE AMPHETAMINES NEGATIVE ng/ml (CUTOFF=500); URINE BARBITURATES NEGATIVE ng/ml (CUTOFF=200); URINE BENZODIAZEPINES NEGATIVE ng/ml (CUTOFF=200)
[2018-10-04 14:08] LABS: COCAINE, UR POSITIVE ng/ml (CUTOFF=300)
--- NOTE | 2018-10-04 15:13 | PN ---
Physical Exam: SUBJECTIVE: Patient seen and examined at bedside- patients BGM got down to 28 this AM- she received 2 amps of D50 and then her sugar got up to 296- she denies any CP/SOB/N/V though she has some slight dizziness OBJECTIVE: Vital Signs Period Temp Pulse Resp BP Sys/Huerta Pulse Ox Last 24 Hr 97.6 F-98.7 F 93-108 16-20 131-161/60-95 98-100 GENERAL: The patient is awake, alert, and fully oriented, in no acute distress. EYES: PEERLA: EOMI: no scleral icterus NECK: no JVD; no lymphadenopathy LUNGS: CTA B/L; no rales, rhnchi or wheezing. HEART: Regular rate and rhythm, S1, S2 without murmur, rub or gallop. ABDOMEN: Soft, nontender, nondistended, normoactive bowel sounds, no guarding, no rebound, no hepatosplenomegaly, no masses. EXTREMITIES: 2+ pulses, warm, well-perfused, no edema. NEUROLOGICAL: Cranial nerves II through XII grossly intact. Normal speech, gait not observed. PSYCH: Normal mood, normal affect. SKIN: Warm, dry, normal turgor, no rashes or lesions noted Laboratory Results - last 24 hr 10/04/18 10/04/18 10/04/18 03:07 03:23 03:23 WBC 12.2 H RBC 4.37 Hgb 12.9 Hct 39.2 MCV 89.6 MCH 29.5 MCHC 32.9 RDW 13.0 Plt Count 310 D MPV 9.5 Absolute Neuts (auto) 8.7 H Neutrophils % 71.5 D Lymphocytes % 21.6 D Monocytes % 5.7 Eosinophils % 0.5 D Basophils % 0.7 Nucleated RBC % 0 PT with INR INR PTT (Actin FS) Sodium 136 Potassium 3.9 Chloride 104 Carbon Dioxide 24 Anion Gap 8 BUN 22 H Creatinine 1.2 Creat Clearance w eGFR 46.14 POC Glucometer 54 Random Glucose 225 H Hemoglobin A1c % Calcium 9.2 Phosphorus Magnesium Total Bilirubin 0.3 AST 7 L ALT 15 Alkaline Phosphatase 83 Creatine Kinase Troponin I Total Protein 7.1 Albumin 3.5 Triglycerides Cholesterol Total LDL Cholesterol HDL Cholesterol TSH Resin T3 Uptake Opiates Screen Methadone Screen Barbiturate Screen Phencyclidine Screen Ur Amphetamines Screen MDMA (Ecstasy) Screen Benzodiazepines Screen Cocaine Screen U Marijuana (THC) Screen 10/04/18 10/04/18 10/04/18 03:23 03:23 05:14 WBC RBC Hgb Hct MCV MCH MCHC RDW Plt Count MPV Absolute Neuts (auto) Neutrophils % Lymphocytes % Monocytes % Eosinophils % Basophils % Nucleated RBC % PT with INR INR PTT (Actin FS) Sodium Potassium Chloride Carbon Dioxide Anion Gap BUN Creatinine Creat Clearance w eGFR POC Glucometer Random Glucose Hemoglobin A1c % 8.0 H Calcium Phosphorus Magnesium Total Bilirubin AST ALT Alkaline Phosphatase Creatine Kinase 73 Troponin I < 0.02 Total Protein Albumin Triglycerides Cholesterol Total LDL Cholesterol HDL Cholesterol TSH 1.24 Resin T3 Uptake 33.3 Opiates Screen Methadone Screen Barbiturate Screen Phencyclidine Screen Ur Amphetamines Screen MDMA (Ecstasy) Screen Benzodiazepines Screen Cocaine Screen U Marijuana (THC) Screen 10/04/18 10/04/18 10/04/18 06:05 06:30 06:30 WBC 10.4 H RBC 4.24 Hgb 12.7 Hct 37.7 MCV 88.9 MCH 29.9 MCHC 33.6 RDW 13.0 Plt Count 310 MPV 8.9 Absolute Neuts (auto) 6.4 Neutrophils % 61.7 Lymphocytes % 32.1 D Monocytes % 5.0 Eosinophils % 0.9 Basophils % 0.3 Nucleated RBC % 0 PT with INR 10.50 INR 0.89 PTT (Actin FS) 21.4 L Sodium Potassium Chloride Carbon Dioxide Anion Gap BUN Creatinine Creat Clearance w eGFR POC Glucometer 71 Random Glucose Hemoglobin A1c % Calcium Phosphorus Magnesium Total Bilirubin AST ALT Alkaline Phosphatase Creatine Kinase Troponin I Total Protein Albumin Triglycerides Cholesterol Total LDL Cholesterol HDL Cholesterol TSH Resin T3 Uptake Opiates Screen Methadone Screen Barbiturate Screen Phencyclidine Screen Ur Amphetamines Screen MDMA (Ecstasy) Screen Benzodiazepines Screen Cocaine Screen U Marijuana (THC) Screen 10/04/18 10/04/18 10/04/18 06:30 06:30 09:00 WBC RBC Hgb Hct MCV MCH MCHC RDW Plt Count MPV Absolute Neuts (auto) Neutrophils % Lymphocytes % Monocytes % Eosinophils % Basophils % Nucleated RBC % PT with INR INR PTT (Actin FS) Sodium 140 Potassium 4.1 Chloride 104 Carbon Dioxide 27 Anion Gap 8 BUN 21 H Creatinine 1.2 Creat Clearance w eGFR 46.14 POC Glucometer 28 Random Glucose 50 L Hemoglobin A1c % Calcium 9.3 Phosphorus 3.1 Magnesium 1.3 L Total Bilirubin 0.3 AST 9 L ALT 16 Alkaline Phosphatase 85 Creatine Kinase Troponin I Total Protein 7.2 Albumin 3.7 Triglycerides 65 Cholesterol 122 Total LDL Cholesterol 59 HDL Cholesterol 60 TSH 1.29 Resin T3 Uptake Opiates Screen Methadone Screen Barbiturate Screen Phencyclidine Screen Ur Amphetamines Screen MDMA (Ecstasy) Screen Benzodiazepines Screen Cocaine Screen U Marijuana (THC) Screen 10/04/18 10/04/18 10/04/18 09:17 10:29 11:13 WBC RBC Hgb Hct MCV MCH MCHC RDW Plt Count MPV Absolute Neuts (auto) Neutrophils % Lymphocytes % Monocytes % Eosinophils % Basophils % Nucleated RBC % PT with INR INR PTT (Actin FS) Sodium 137 Potassium 3.9 Chloride 100 Carbon Dioxide 29 Anion Gap 8 BUN 19 H Creatinine 1.3 Creat Clearance w eGFR 42.07 POC Glucometer 296 210 Random Glucose 212 H Hemoglobin A1c % Calcium 9.8 Phosphorus Magnesium Total Bilirubin AST ALT Alkaline Phosphatase Creatine Kinase Troponin I Total Protein Albumin Triglycerides Cholesterol Total LDL Cholesterol HDL Cholesterol TSH Resin T3 Uptake Opiates Screen Methadone Screen Barbiturate Screen Phencyclidine Screen Ur Amphetamines Screen MDMA (Ecstasy) Screen Benzodiazepines Screen Cocaine Screen U Marijuana (THC) Screen 10/04/18 12:45 WBC RBC Hgb Hct MCV MCH MCHC RDW Plt Count MPV Absolute Neuts (auto) Neutrophils % Lymphocytes % Monocytes % Eosinophils % Basophils % Nucleated RBC % PT with INR INR PTT (Actin FS) Sodium Potassium Chloride Carbon Dioxide Anion Gap BUN Creatinine Creat Clearance w eGFR POC Glucometer Random Glucose Hemoglobin A1c % Calcium Phosphorus Magnesium Total Bilirubin AST ALT Alkaline Phosphatase Creatine Kinase Troponin I Total Protein Albumin Triglycerides Cholesterol Total LDL Cholesterol HDL Cholesterol TSH Resin T3 Uptake Opiates Screen Negative Methadone Screen Negative Barbiturate Screen Negative Phencyclidine Screen Negative Ur Amphetamines Screen Negative MDMA (Ecstasy) Screen Negative Benzodiazepines Screen Negative Cocaine Screen Positive A* U Marijuana (THC) Screen Negative Active Medications Generic Name Dose Route Start Last Admin Trade Name Freq PRN Reason Stop Dose Admin Chlordiazepoxide HCl 10 mg 10/06/18 05:00 Librium - PO 10/07/18 05:00 Q12H PRN Signs/symptoms of Withdrawal Chlordiazepoxide HCl 10 mg 10/04/18 06:30 Librium - PO 10/06/18 05:00 Q8H PRN Signs/symptoms of Withdrawal Chlordiazepoxide HCl 25 mg 10/04/18 05:00 10/04/18 13:09 Librium - PO 10/04/18 21:01 25 mg Q8H NIKOLAI Administration Chlordiazepoxide HCl 15 mg 10/05/18 05:00 Librium - PO 10/05/18 21:01 Q8H NIKOLAI Chlordiazepoxide HCl 10 mg 10/06/18 05:00 Librium - PO 10/07/18 05:01 Q8H NIKOLAI Dextrose 25 gm 10/04/18 07:57 D50w (Vial) - IVPUSH PRN PRN HYPOGLYCEMIA Heparin Sodium (Porcine) 5,000 unit 10/04/18 06:00 10/04/18 13:16 Heparin - SQ 5,000 unit TID NIKOLAI Administration Dextrose/Sodium Chloride 1,000 mls @ 75 mls/hr 10/04/18 13:45 10/04/18 13:56 D5-1/2ns - IV 75 mls/hr ASDIR NIKOLAI Administration ASSESSMENT/PLAN: Pt is a 58 y/o F with a significant past medical history of DM, Asthma, and HLD who presented to [facility] due to weakness an numbness. # Dizziness/Full Body numbness 2/2 Hypoglycemia -Pt is on numerous oral hypoglycemic medications. States she is compliant with her medications. Does endorse she took her medications before cocaine use and when not eating. -HBA1c 8.0% -BGM Q2H. -Negative head CT -D51/2 NS @75 # Polysubstance abuse -Counseled to stop -Started on Librium protocol in light of chronic alcohol use -Urine Toxicology showing cocaine #FEN D51/2 NS @75 Monitor Electrolytes Diabetic Diet #DVT ppx: HEPSQTID Dispo: Med-Surg Problem List - Problems (1) Dizziness Code(s): R42 - DIZZINESS AND GIDDINESS (2) Hypoglycemia Code(s): E16.2 - HYPOGLYCEMIA, UNSPECIFIED Visit type - Emergency Visit Emergency Visit: Yes ED Registration Date: 10/04/18 Care time: The patient presented to the Emergency Department on the above date and was hospitalized for further evaluation of their emergent condition. - New Patient This patient is new to me today: Yes Date on this admission: 10/04/18 - Critical Care Critical Care patient: No
[2018-10-04] MEDS ORDERED: DOCUSATE SODIUM 100 MG CAPSULE (FP) PO PRN (15:15)
[2018-10-05] MEDS: DEXTROSE 5%-0.45% SALINE 1,000 ML IV SCH (02:14)
[2018-10-05] MEDS: chlordiazePOXIDE 5 MG CAPSULE PO SCH ×2 (05:07→13:58)
[2018-10-05] MEDS: HEPARIN NA (PORCINE) 5,000 UNITS/ML 1ML VIAL SQ SCH (05:08)
[2018-10-05 07:31] LABS: HEMATOCRIT 35.9 % (32.4-45.2); HEMOGLOBIN 11.7 GM/dL (10.7-15.3); MCH 29.3 pg (25.7-33.7); MCHC 32.7 g/dl (32.0-36.0); MEAN CELL VOLUME 89.4 fl (80-96); MEAN PLT VOLUME 8.9 fl (7.5-11.1); PLATELET COUNT 262 K/MM3 (134-434); RBC 4.01 M/mm3 (3.60-5.2); WHITE BLOOD COUNT 7.3 K/mm3 (4.0-10.0)
[2018-10-05 08:06] LABS: ALBUMIN 3.4 g/dl (3.4-5.0); ALK PHOS 87 U/L (45-117); ANION GAP 6 MMOL/L (8-16); BILIRUBIN,TOTAL 0.2 mg/dL (0.2-1); BLOOD UREA NITROGEN 16 mg/dL (7-18); CALCIUM 9.1 mg/dL (8.5-10.1); CHLORIDE 107 mmol/L (98-107); CO2 25 mmol/L (21-32); GLUCOSE,RANDOM 102 mg/dL (74-106); MAGNESIUM 1.6 mg/dL (1.8-2.4); PHOSPHOROUS 3.4 mg/dL (2.5-4.9); POTASSIUM 4.1 mmol/L (3.5-5.1); SGOT/AST 12 U/L (15-37); SGPT/ALT 16 U/L (13-61); SODIUM 137 mmol/L (136-145); TOT PROT 6.7 g/dl (6.4-8.2)
[2018-10-05] MEDS ORDERED: MAGNESIUM OXIDE 400 MG TABLET (FP) PO ONE (08:30)
[2018-10-05] MEDS ORDERED: MAGNESIUM SULF 50% (8.12 MEQ/2 ML-1 GM VIAL) IVPB ONE (09:00)
[2018-10-05] MEDS ORDERED: FERROUS SO4 325 MG TABLET (FP) PO SCH (10:00)
[2018-10-05] MEDS ORDERED: METHIMAZOLE 5 MG TABLET (FP) PO SCH (10:00)
--- NOTE | 2018-10-05 13:10 | DS ---
Physical Exam: SUBJECTIVE: Patient seen and examined at bedside-no acute events overnight patients sugars have remained under control; she denies any CP/SOB/N.V no more dizziness o OBJECTIVE: Vital Signs Period Temp Pulse Resp BP Sys/Huerta Pulse Ox Last 24 Hr 98.1 F-98.8 F 84-110 18-18 131-146/69-87 97 PHYSICAL EXAM GENERAL: The patient is awake, alert, and fully oriented, in no acute distress. EYES: PEERLA: EOMI no scleral icteurus. NECK: no JVD; no lymphadenoapthy LUNGS: Breath sounds equal, clear to auscultation bilaterally, no wheezes, no crackles, no accessory muscle use. HEART: Regular rate and rhythm, S1, S2 without murmur, rub or gallop. ABDOMEN: Soft, nontender, nondistended, normoactive bowel sounds, no guarding, no rebound, no hepatosplenomegaly, no masses. EXTREMITIES: 2+ pulses, warm, well-perfused, no edema. PSYCH: Normal mood, normal affect. SKIN: Warm, dry, normal turgor, no rashes or lesions noted. LABS Laboratory Results - last 24 hr 10/04/18 10/04/18 10/05/18 12:45 16:28 06:45 WBC RBC Hgb Hct MCV MCH MCHC RDW Plt Count MPV Sodium 137 Potassium 4.1 Chloride 107 Carbon Dioxide 25 Anion Gap 6 L BUN 16 Creatinine 1.0 Creat Clearance w eGFR 56.95 POC Glucometer 90 Random Glucose 102 Calcium 9.1 Phosphorus 3.4 Magnesium 1.6 L Total Bilirubin 0.2 AST 12 L ALT 16 Alkaline Phosphatase 87 Total Protein 6.7 Albumin 3.4 Opiates Screen Negative Methadone Screen Negative Barbiturate Screen Negative Phencyclidine Screen Negative Ur Amphetamines Screen Negative MDMA (Ecstasy) Screen Negative Benzodiazepines Screen Negative Cocaine Screen Positive A* U Marijuana (THC) Screen Negative 10/05/18 10/05/18 10/05/18 06:45 07:13 11:30 WBC 7.3 RBC 4.01 Hgb 11.7 Hct 35.9 MCV 89.4 MCH 29.3 MCHC 32.7 RDW 13.0 Plt Count 262 MPV 8.9 Sodium Potassium Chloride Carbon Dioxide Anion Gap BUN Creatinine Creat Clearance w eGFR POC Glucometer 105 198 Random Glucose Calcium Phosphorus Magnesium Total Bilirubin AST ALT Alkaline Phosphatase Total Protein Albumin Opiates Screen Methadone Screen Barbiturate Screen Phencyclidine Screen Ur Amphetamines Screen MDMA (Ecstasy) Screen Benzodiazepines Screen Cocaine Screen U Marijuana (THC) Screen head CT: negative for any acute intracranial pathology HOSPITAL COURSE: Date of Admission:10/04/18 Pt is a 58 y/o F with a significant past medical history of DM, Asthma, and HLD who presented to [facility] due to weakness and numbness. Pt endorses that Thursday, she began to experience generalized numbness/weakness in all of her body. Pt states she tried to walk to bathroom but could not get out of bed. Pt did not seek immediate help. The following day, pt was in her home and her friend began to notice that she had slurring of speech and that her " eyes did not look right.". 911 was called and pt's BGM was found to be in low 60's. Pt was given peanut butter and juice and repeat BGM was in 300s; pt was informed by EMS to go to hospital if symptoms progress. Later that evening, pt began to experience her previous symptoms of numbness/weakness and subsequently came to ED. Pt does endorse that she sometimes uses cocaine and does not eat during this time. Pt takes oral hypoglycemic medications though cannot recall names; endorses taking DM medications before cocaine use which may be culprit to possible symptomatic hypoglycemia as she does not eat when using cocaine. Denies nausea or vomiting. (1) BGM upon arrival to ED 66 (2) Given D5 Amp in ED Her hypoglycemia was likely secondary to multiple different diabetes meds in addition to her lack of eating and cocaine use. We started her on d51/2 NS and held all of her diabetes meds. Her sugars remained under control she was no longer having any dizziness or sweats and she was disharegd home- only discharged on metformin and januvia and we discontinued her Glimepiride. Date of Discharge: 10/05/18 Minutes to complete discharge: 35 Discharge Summary Reason For Visit: DIZZINESS,HYPOGLYCEM\\IA,PRE-SYCOPE Current Active Problems Dizziness (Acute) Hypoglycemia (Acute) Near syncope (Acute) Syncope (Acute) Condition: Stable - Instructions Diet, Activity, Other Instructions: You came to the hospital with complaints of numbness and dizziness and your sugars were found to be very low, we think it is most likely due to your multiple diabetes medications. Please resume all of your home medications EXCEPT: Please do not continue taking Glimepiride Please do not continue taking Lasix until you follow up with Dr. Zarate Please follow up with Dr. Zarate within one week Please monitor your sugars and log them before every meal so you can bring them to Dr. Zarate on your next visit *if you begin to experience dizziness/numbness, headaches, chest pains, shortness of breath, nausea/vomiting please return to the emergency room immediately Referrals: Jagruti Gonzales MD [Staff Physician] - Disposition: HOME - Home Medications Comprehensive Discharge Medication List: Ambulatory Orders Acetaminophen [Tylenol .Regular Strength -] 650 mg PO Q4H PRN #0 tablet Aspirin [ASA -] 81 mg PO DAILY #0 tab.chew 03/20/13 Chlorthalidone [Hygroton -] 25 mg PO DAILY #0 tablet 03/20/13 Ferrous Sulfate [Feosol] 325 mg PO DAILY #0 ud 03/20/13 Losartan Potassium 100 mg PO DAILY #0 tablet 03/20/13 Simvastatin [Zocor -] 40 mg PO HS #0 tablet 03/20/13 Chlorthalidone 25 mg PO DAILY 10/04/18 Metformin HCl [Glucophage] 500 mg PO BID 10/04/18 Sitagliptin Phosphate [Januvia] 100 mg PO DAILY 10/04/18 Problem List - Problems (1) Dizziness Code(s): R42 - DIZZINESS AND GIDDINESS (2) Hypoglycemia Code(s): E16.2 - HYPOGLYCEMIA, UNSPECIFIED This patient is new to me today: No Emergency Visit: Yes ED Registration Date: 10/04/18 Care time: The patient presented to the Emergency Department on the above date and was hospitalized for further evaluation of their emergent condition. Critical Care patient: No - Discharge Referral Referred to [facility] No
--- NOTE | 2018-10-05 15:47 | PN ---
Teaching Attending Note Name of Resident: Syl Plaza ATTENDING PHYSICIAN STATEMENT I saw and evaluated the patient. I reviewed the resident's note and discussed the case with the resident. I agree with the resident's findings and plan as documented. SUBJECTIVE: Feeling better - denies CP/palps/dyspnea/sweating/nausea/vomiting. OBJECTIVE: Afebrile, Hemodynamically Stable. No tremor/hallucinations/ diaphoresis. Last Vital Signs Temp Pulse Resp BP Pulse Ox 98.8 F 84 18 134/69 97 10/05/18 06:00 10/05/18 06:00 10/05/18 06:00 10/05/18 06:00 10/04/18 21:00 Heart - S1, S2, RRR Lungs - clear to auscultation Abdomen - Soft, non-tender. Bowel Sounds normal. Extremities - no edema, no calf tenderness. Neuro - AAO x 3. Tone/Power normal all 4 extremities. No tremor. Laboratory Results - last 24 hr 10/04/18 10/05/18 10/05/18 16:28 06:45 06:45 WBC 7.3 RBC 4.01 Hgb 11.7 Hct 35.9 MCV 89.4 MCH 29.3 MCHC 32.7 RDW 13.0 Plt Count 262 MPV 8.9 Sodium 137 Potassium 4.1 Chloride 107 Carbon Dioxide 25 Anion Gap 6 L BUN 16 Creatinine 1.0 Creat Clearance w eGFR 56.95 POC Glucometer 90 Random Glucose 102 Calcium 9.1 Phosphorus 3.4 Magnesium 1.6 L Total Bilirubin 0.2 AST 12 L ALT 16 Alkaline Phosphatase 87 Total Protein 6.7 Albumin 3.4 10/05/18 10/05/18 07:13 11:30 WBC RBC Hgb Hct MCV MCH MCHC RDW Plt Count MPV Sodium Potassium Chloride Carbon Dioxide Anion Gap BUN Creatinine Creat Clearance w eGFR POC Glucometer 105 198 Random Glucose Calcium Phosphorus Magnesium Total Bilirubin AST ALT Alkaline Phosphatase Total Protein Albumin ASSESSMENT AND PLAN: 58 year old female with history of Polysubstance Abuse (Alcohol, cocaine, tobacco), DM2, Asthma, Hyperthyroidism, and HLD who presented with generalized weakness and lethargy. EMS found her fingerstick glucose to be in the 60s. 1. Acute Metabolic Encephalopathy secondary to Hypoglycemia - resolved CT Head - negative Hx of uncontrolled DM 2 - A1c 8.0 - Oral anti-hyperglycemics currently held due to hypoglycemic episodes. Medically stable for discharge - advised to resume Metformin and Januvia but not Glimepiride until her follow up PCP visit. She is also advised to check her fingersticks at home and to record the readings to take to her PCP. 2. Hx of Polysubstance Abuse (Alcohol, Cocaine, Tobacco). No evidence of alcohol withdrawal. No need to continue Librium protocol for alcohol withdrawal. 3. Asthma - stable. No evidence of acute exacerbation. 4. Hypomagnesemia - repleted. 5. Hyperthyroidism - Patient reportedly on Methimazole, will confirm with PCP office. Dispo - medically stable for discharge.
[2018-10-05 17:09] VITALS: BP 138/82; PULSE 96; TEMP 98.3
[2018-10-05] MEDS ORDERED: PATIENT'S OWN MEDICATION (NON-FORMULARY) (Simvastatin 40 MG) PO SCH (22:00)
[2018-10-06] MEDS ORDERED: chlordiazePOXIDE HCL 10 MG CAPSULE PO SCH (05:00)
[2018-10-06] MEDS ORDERED: chlordiazePOXIDE HCL 10 MG CAPSULE PO PRN (05:00)
== END 2018-10-05 13:57 | disposition home or self-care (01) | DRG 637 ==
LOC: JER 02:56 → JERBED 06:00 → J7W 10:26
PROVIDERS: ADMIT Internal Medicine
PROC: HZ2ZZZZ Detoxification Services for Substance Abuse Treatment (ICD-10-PCS; principal; 2018-10-04)
DX: E11.649 Type 2 diabetes mellitus with hypoglycemia without coma (principal); G93.41 Metabolic encephalopathy; F10.10 Alcohol abuse, uncomplicated; F19.10 Other psychoactive substance abuse, uncomplicated; I10 Essential (primary) hypertension; E78.5 Hyperlipidemia, unspecified; J45.909 Unspecified asthma, uncomplicated; E83.42 Hypomagnesemia; F14.90 Cocaine use, unspecified, uncomplicated; E05.90 Thyrotoxicosis, unspecified without thyrotoxic crisis or storm
CPT/HCPCS: 36415; 70450-TC; 71045-TC-FY; 80048; 80053; 80061; 80307; 82550; 82962; 83036; 83721; 83735; 84100; 84443; 84479; 84484; 85025; 85027; 85610; 85730; 93005; 93010; 99285-25; J1644